=== PATIENT | female | born 1945 | race Two or more races ===

== ENCOUNTER 2018-03-29 19:48 | Emergency (ER) | payer MEDICARE, OTHER ==
[~2018-03-29] VITALS: Ht 175.3 cm; Wt 81.6 kg
[~2018-03-29 19:48] MED LIST: ATOR20TA PO; GABA-339 PO; LOS50T PO
[2018-03-29] MEDS: ONDANSETRON HCL 4 MG/2 ML VIAL IV ONE ×2 (20:15→21:00)
[2018-03-29] MEDS ORDERED: IPRATROPIUM BROM 0.5 MG/2.5ML INH SOL NEB ONE (20:15)
[2018-03-29] MEDS: SODIUM CHLORIDE 0.9% 1,000 ML IV ONE ×2 (20:15→21:00)
[2018-03-29] MEDS ORDERED: ALBUTEROL SULF 2.5 MG/0.5ML(0.5%) NEB SOLN NEB ONE (20:15)
[2018-03-29] MEDS: MORPHINE SULFATE 4 MG/ML SYR/VIAL IV ONE ×2 (20:15→21:00)
[2018-03-29 20:59] LABS: Basophils # (auto) 0 uL; Basophils % (auto) 0.2 % (0.0-2.0); Eosinophils # (auto) 0 uL; Eosinophils % (auto) 0.1 % (0.0-7.0); Hematocrit 36.9 % (36.0-46.0); Hemoglobin 12.2 g/dL (12.2-16.2); Lymphocytes # (auto) 0.2 uL; Lymphocytes % (auto) 4.6 % (10.0-50.0); Mean Corpuscular Hemoglobin 30.3 pg (28.0-32.0); Mean Corpuscular Hgb Conc. 33.1 g/dL (32.0-36.0); Mean Corpuscular Volume 91.4 fL (80.0-100.0); Monocytes # (auto) 0.3 uL; Monocytes % (auto) 4.9 % (0.0-12.0); Neutrophils # (auto) 4.7 uL; Neutrophils % (auto) 90.2 % (37.0-80.0); Nucleated Red Blood Cells % 0.1 %; Platelet Count (auto) 136 10^3/uL (140-450); Red Blood Cells 4.04 10^6/uL (4.0-5.20); Red Cell Distribution Width 13.4 % (11.8-14.3); White Blood Cell 5.3 10^3/uL (4.4-10.8)
[2018-03-29 21:11] LABS: Partial Thromboplastin Time 26.7 sec (23.78-33.04); Prothrombin Time 10.7 sec (9.27-12.13)
[2018-03-29 21:13] LABS: Albumin 3.7 g/dL (3.4-5.0); BUN/Creatinine Ratio 24.2; Calcium 7.8 mg/dL (8.5-10.1); Potassium 3.8 mmol/L (3.5-5.1)
[2018-03-29 21:17] LABS: Bilirubin, Total 0.4 mg/dL (0.2-1.0); Total Protein 7.7 g/dL (6.4-8.2)
[2018-03-29] MEDS ORDERED: SODIUM CHLORIDE 0.9% 1,000 ML IV ONE (22:15)
[2018-03-29 23:50] VITALS: BP 113/80
== END 2018-03-29 22:59 | disposition home or self-care (01) ==
LOC: ER 19:48 → EDBD 19:48 → ER 22:59
DX: K52.9 Noninfective gastroenteritis and colitis, unspecified (principal); J44.9 Chronic obstructive pulmonary disease, unspecified; E11.9 Type 2 diabetes mellitus without complications; R06.02 Shortness of breath; Z87.891 Personal history of nicotine dependence; Z90.49 Acquired absence of other specified parts of digestive tract; Z90.710 Acquired absence of both cervix and uterus; Z59.0 Homelessness; Z88.0 Allergy status to penicillin
CPT/HCPCS: 36415; 74176; 80053; 82150; 83605; 83690; 83880; 84484; 85025; 85610; 85730; 93005; 94640; 96361; 96374; 96375; 99284; J2270; J2405; J7030; J7611; J7644